=== PATIENT | female | born 1970 | race Caucasian/White ===

== ENCOUNTER → 2016-12-29 | Outpatient (CLI) | payer MEDICAID ==
--- NOTE | 2016-12-29 14:09 | Diagnostic Imaging Report ---
INDICATION: Bilateral diagnostic mammogram with tomography evaluation. COMPARISON: 05/27/16. CAD is utilized. The current study was also evaluated with a Computer Aided Detection (CAD) system. FINDINGS: The breasts are composed of extremely dense parenchyma which may decrease mammographic sensitivity. The area of palpable lump in the upper aspect of the right breast is marked with no definite underlying lesion seen. There is some slight asymmetry with questionable architectural distortion in the upper aspect of the right MLO view on both sides. This does not appear to have a correlating abnormality on the cc projection and tomographic views evaluation are suggestive of underlying parenchyma. IMPRESSION: Extremely dense breast parenchyma. Bilateral upper breast asymmetries with questionable architectural distortion appears to relate to parenchyma superimposition. Ultrasound evaluation pending. BI-RADS 0. ACR BI-RADS Category 0: Incomplete. (Needs additional imaging evaluation). Result letter will be mailed to the patient. Note: At least 10% of breast cancer is not imaged by mammography. Dictated by: Dictated on workstation # [id number]
--- NOTE | 2016-12-29 20:17 | Diagnostic Imaging Report ---
EXAMINATION: Bilateral breast ultrasound. INDICATION: Palpable lump in the right breast and bilateral extremely dense breasts seen on mammography. In addition, there is questionable architectural distortion in the upper aspect of each breast, seen on the MLO view, bilaterally. FINDINGS: There are multiple simple cysts seen on each breast. The largest on the left side at the 10:30 o'clock position, 4 cm from nipple, is 1.1 cm and on the right side at the 7:30 o'clock position, 4 cm from the nipple, measuring 2 cm. Other smaller cysts are seen disbursed in the breasts, bilaterally. IMPRESSION: Multiple simple cysts seen, bilaterally, with no suspicious lesion. The questioned architectural distortion in the upper aspect of each breast is likely summation artifact of parenchyma based on tomographic evaluation. A six months followup bilateral mammogram is recommended to reevaluate. Also clinical followup for the palpable area which demonstrated no definite correlating lesion is recommended. ACR BI-RADS Category 3: Probably benign findings. Result letter will be mailed to the patient. Note: At least 10% of breast cancer is not imaged by mammography. Dictated by: Dictated on workstation # [id number]
== END ==
LOC: RAD 12:14
PROVIDERS: ATTEND Nurse Practitioner Adult Health
DX: N60.11 Diffuse cystic mastopathy of right breast (principal); N63 Unspecified lump in breast
CPT/HCPCS: 77066